=== PATIENT | male | born 1980 | race Caucasian/White ===

== ENCOUNTER 2018-02-10 09:10 | Emergency (ER) | payer OTHER ==
[~2018-02-10] VITALS: Ht 175.3 cm; Wt 81.0 kg
[2018-02-10 09:12] VITALS: BP 137/88
[2018-02-10] MEDS ORDERED: NAPR-56 PO (09:19)
[2018-02-10] MEDS ORDERED: ketorolac trometh inj. 60 MG/2 ML VIAL IM ONE (09:20)
== END 2018-02-10 09:38 | disposition home or self-care (01) ==
LOC: ER 09:10
DX: M25.461 Effusion, right knee (principal); M25.561 Pain in right knee; E03.9 Hypothyroidism, unspecified; Z85.841 Personal history of malignant neoplasm of brain; Z90.49 Acquired absence of other specified parts of digestive tract; Z98.890 Other specified postprocedural states; Z88.0 Allergy status to penicillin; V89.2XXA Person injured in unspecified motor-vehicle accident, traffic, initial encounter; Y93.89 Activity, other specified; Y92.89 Other specified places as the place of occurrence of the external cause; Y99.9 Unspecified external cause status
CPT/HCPCS: 96372; 99283; J1885

== ENCOUNTER 2020-10-09 18:56 | Emergency (ER) | payer SELFPAY ==
[~2020-10-09] VITALS: Ht 170.2 cm; Wt 130.0 kg
[~2020-10-09 18:56] MED LIST: METH4TAB3 PO
[2020-10-09 19:19] VITALS: BP 146/93
== END 2020-10-09 22:51 | disposition home or self-care (01) ==
LOC: ER 18:57
DX: M25.561 Pain in right knee (principal); E03.9 Hypothyroidism, unspecified; Z85.841 Personal history of malignant neoplasm of brain; Z90.89 Acquired absence of other organs; Z98.890 Other specified postprocedural states; Z88.0 Allergy status to penicillin; Z79.899 Other long term (current) drug therapy
CPT/HCPCS: 29505; 73564; 99283